=== PATIENT | male | born 1965 | race Caucasian/White ===

== ENCOUNTER 2017-07-29 10:23 | Emergency (ER) | payer BC, OTHER ==
[~2017-07-29] VITALS: Ht 172.7 cm; Wt 89.6 kg
[~2017-07-29 10:23] MED LIST: CLON0.5T3 PO; GLUCTAB7 PO; KRIL1CAP7 PO; MULTTAB58 PO
[2017-07-29 10:37] VITALS: TEMP 36.7; Ht 172.7 cm; Wt 89.6 kg
[2017-07-29 10:54] VITALS: O2SAT 97
[2017-07-29] MEDS ORDERED: MECLIZINE HCL 12.5 MG TAB PO STA (10:58)
[2017-07-29] MEDS ORDERED: ASPIRIN 81 MG CHEW PO STA (10:58)
--- NOTE | 2017-07-29 10:58 | EMERGENCY ROOM VISIT NOTE ---
History Report prepared by Jl: Gunjan Salmeron Under the Supervision of: Dr. Juan Lockwood M.D. First contact with patient: 10:46 Chief Complaint: HYPERTENSION Stated Complaint: BP HIGH & DIZZY GNAWING PAIN LEFT SIDE UNDER ARM History of Present Illness The patient is a 52 year old male who presents to the Emergency Room with complaints of intermittent episodes of high blood pressure followed by dizziness and pain down left chest/side beginning two weeks ago. Presently, the patient denies any chest pain. The patient describes his pain in his side as a "gnawing" pain. The patient denies any cough, hormone replacements, or recent travel. The patient denies any recent falls or trauma. The patient denies any history of hypertension The patient is not a smoker. Source of History: patient Onset: 2 weeks ago Position: other (generalized) Quality: other (dizziness) Timing: intermittent Associated Symptoms: No chest pain Review of Systems See HPI for pertinent positives and negatives. A total of ten systems were reviewed and were otherwise negative. Past Medical & Surgical Medical Problems: (1) No Known Active Medical Problems Family History Diabetes mellitus FH: cancer FH: heart disease Hypertension Social History Smoking Status: Never Smoker Alcohol Use: occasionally Drug Use: none Marital Status: Housing Status: lives with significant other Occupation Status: employed Current/Historical Medications Scheduled Aspirin (Aspirin Ec), 81 MG PO QAM Clonazepam (Klonopin), 0.5 MG PO HS Fish Oil ([place]-3), 2 CAP PO QAM Bzbszckpxnk-Secgudzlqnr-Xci C- (Glucosamine Chondroitin), 2 TABS PO DAILY Magnesium Oxide (Mag-Ox), 400 MG PO QAM Misc Natural Products (Turmeric Curcumin), 1 CAP PO QAM Multiple Vitamin (Multivitamin), 1 TAB PO DAILY Scheduled PRN Ibuprofen (Advil), 200-600 MG PO Q4H PRN for Pain Allergies Coded Allergies: No Known Allergies (Unverified , 07/29/17) Physical Exam Vital Signs Date Time Temp Pulse Resp B/P (MAP) Pulse Ox O2 Delivery O2 Flow Rate FiO2 07/29/17 12:36 84 20 116/84 97 07/29/17 12:18 84 20 116/84 97 Room Air 07/29/17 11:01 80 07/29/17 11:00 84 16 135/89 97 Room Air 07/29/17 10:54 97 Room Air 07/29/17 10:37 36.7 86 18 148/95 97 Room Air Physical Exam Physical Exam GENERAL: He is oriented to person, place, and time. He appears well-developed and well-nourished. He does not appear distressed. ____ HENT: Exam performed. Head: Normocephalic and atraumatic. Right Ear: External ear normal. No mastoid tenderness. Left Ear: External ear normal. No mastoid tenderness. Mouth/Throat: The oropharynx is clear and moist. No trismus in the jaw. No dental abscesses or uvula swelling. No oropharyngeal exudate or tonsillar abscesses. ____ EYES: Conjunctivae and EOM are normal. Pupils are equal, round, and reactive to light. Right eye exhibits no discharge. Left eye exhibits no discharge. No scleral icterus. ____ NECK: Normal range of motion. Neck supple. No JVD present. No spinous process tenderness present. No carotid bruit present. No rigidity. No tracheal deviation and normal range of motion present. No Brudzinski's sign and no Kernig 's sign noted. ____ CV: Normal rate, regular rhythm, normal heart sounds and intact distal pulses. There is no peripheral edema. Palpable radial pulses bue. ____ PULM/CHEST: Effort normal and breath sounds normal. No respiratory distress. No stridor. He has no wheezes. He has no rales. Chest Wall: He exhibits no tenderness. ____ ABD: The abdomen is soft. Bowel sounds are normal. He has no distension. No mass is present. There is no tenderness. There is no rebound, no guarding, no Cesar's sign and no tenderness at McBurney's point. Rovsig negative MUSC/SKEL: Normal range of motion. There is no peripheral edema, tenderness or deformity. LYMPH: No cervical adenopathy. ____ NEURO: He is alert and oriented to person, place, and time. He has normal strength. No cranial nerve deficit or sensory deficit. Coordination and gait normal. GCS eye subscore is 4. GCS verbal subscore is 5. GCS motor subscore is 6. Cerebellar tests wnl. ____ SKIN: Skin is warm and dry. He is not diaphoretic. ____ PSYCH: He has a normal mood and affect. His behavior is normal. Judgment and thought content normal. ____ Medical Decision & Procedures Laboratory Results 07/29/17 11:00 Red Blood Count 4.72, Mean Corpuscular Volume 83.9, Mean Corpuscular Hemoglobin 30.1, Mean Corpuscular Hemoglobin Concent 35.9, Mean Platelet Volume 10.4, Neutrophils (%) (Auto) 64.0, Lymphocytes (%) (Auto) 23.7, Monocytes (%) (Auto) 7.9, Eosinophils (%) (Auto) 3.8, Basophils (%) (Auto) 0.2, Neutrophils # (Auto) 5.32, Lymphocytes # (Auto) 1.97, Monocytes # (Auto) 0.66, Eosinophils # (Auto) 0.32, Basophils # (Auto) 0.02 07/29/17 11:00 Test 07/29/17 11:00 White Blood Count 8.32 K/uL (4.8-10.8) Red Blood Count 4.72 M/uL (4.7-6.1) Hemoglobin 14.2 g/dL (14.0-18.0) Hematocrit 39.6 % (42-52) Mean Corpuscular Volume 83.9 fL (80-100) Mean Corpuscular Hemoglobin 30.1 pg (25-34) Mean Corpuscular Hemoglobin Concent 35.9 g/dl (32-36) Platelet Count 188 K/uL (130-400) Mean Platelet Volume 10.4 fL (7.4-10.4) Neutrophils (%) (Auto) 64.0 % Lymphocytes (%) (Auto) 23.7 % Monocytes (%) (Auto) 7.9 % Eosinophils (%) (Auto) 3.8 % Basophils (%) (Auto) 0.2 % Neutrophils # (Auto) 5.32 K/uL (1.4-6.5) Lymphocytes # (Auto) 1.97 K/uL (1.2-3.4) Monocytes # (Auto) 0.66 K/uL (0.11-0.59) Eosinophils # (Auto) 0.32 K/uL (0-0.5) Basophils # (Auto) 0.02 K/uL (0-0.2) RDW Standard Deviation 38.8 fL (36.4-46.3) RDW Coefficient of Variation 12.7 % (11.5-14.5) Immature Granulocyte % (Auto) 0.4 % Immature Granulocyte # (Auto) 0.03 K/uL (0.00-0.02) Anion Gap 5.0 mmol/L (3-11) Est Creatinine Clear Calc Drug Dose 95.0 ml/min Estimated GFR () 100.6 Estimated GFR (Non- 86.8 BUN/Creatinine Ratio 10.1 (10-20) Calcium Level 8.7 mg/dl (8.5-10.1) Troponin I < 0.015 ng/ml (0-0.045) Laboratory results reviewed by me Medications Administered Medications (Trade) Dose Ordered Sig/Gerardo Route Start Time Stop Time Status Last Admin Dose Admin Aspirin (Aspirin Chew) 324 mg NOW STAT PO 07/29/17 10:58 07/29/17 11:01 DC 07/29/17 11:26 324 MG Meclizine HCl (Antivert Tab) 12.5 mg NOW STAT PO 07/29/17 10:58 07/29/17 11:01 DC 07/29/17 11:26 12.5 MG ECG Per My Interpretation Indication: chest pain Rate (beats per minute): 82 Rhythm: sinus rhythm Findings: other ([place],QRS, QTC within normal limits, no ST elevation or ST depression) ED Course 1053: The patient was evaluated in room B8. A complete history and physical exam was performed. 1058: Ordered Antivert Tab 12.5 mg PO, Aspirin 324 mg PO. 1230: Vitals stable, blood pressure, EKG, and labs within normal limits. The patient's dizziness resolved. Long conversation with the patient and his family at bedside about hypertension and lifestyle modifications including low salt diet and exercise. He agreed to engage in these and will follow up with his PCP. DISCHARGE - Plan of care discussed with family and questions answered. The family was given both verbal and printed discharge instructions. The family verbalized understanding and ability to comply. The family is to seek outpatient follow up as noted in the discharge instructions. The family verbalized understanding and ability to comply. The family is discharged in stable condition. The family was instructed to return for worsening symptoms. Medical Decision Vitals stable, blood pressure, EKG, and labs within normal limits. The patient' s dizziness resolved. Long conversation with the patient and his family at bedside about hypertension and lifestyle modifications including low salt diet and exercise. He agreed to engage in these and will follow up with his PCP. DISCHARGE - Plan of care discussed with family and questions answered. The family was given both verbal and printed discharge instructions. The family verbalized understanding and ability to comply. The family is to seek outpatient follow up as noted in the discharge instructions. The family verbalized understanding and ability to comply. The family is discharged in stable condition. The family was instructed to return for worsening symptoms. Medication Reconcilliation Current Medication List: was personally reviewed by me Blood Pressure Screening Patient's blood pressure: Elevated blood pressure Blood pressure disposition: Referred to PCP Impression Primary Impression: Hypertension Scribe Attestation The scribe's documentation has been prepared under my direction and personally reviewed by me in its entirety. I confirm that the note above accurately reflects all work, treatment, procedures, and medical decision making performed by me. The chart was completed utilizing [employer] Speech voice recognition software. Grammatical errors, random word insertions, pronoun errors, and incomplete sentences are an occasional consequence of this system due to software limitations, ambient noise, and hardware issues. Any formal questions or concerns about the content, text, or information contained within the body of this dictation should be directly addressed to the physician for clarification. Departure Information Dispostion Home / Self-Care Referrals Ann Almanzar M.D. (MEDICAL) (PCP) Forms HOME CARE DOCUMENTATION FORM, IMPORTANT VISIT INFORMATION, WORK / SCHOOL INSTRUCTIONS Patient Instructions Hypertension Control, My [facility] Problem Qualifiers Primary Impression: Hypertension Hypertension type: unspecified Qualified Codes: I10 - Essential (primary) hypertension
[2017-07-29 11:17] LABS: BASO % 0.2 %; BASO ABS # 0.02 K/uL (0-0.2); EOS % 3.8 %; EOS ABS # 0.32 K/uL (0-0.5); HEMATOCRIT 39.6 % (42-52); HEMOGLOBIN 14.2 g/dL (14.0-18.0); IG# 0.03 K/uL (0.00-0.02); LYMPH % 23.7 %; LYMPH ABS # 1.97 K/uL (1.2-3.4); MEAN CELL VOLUME 83.9 fL (80-100); MEAN CORPUSCULAR HEMOGLOBIN 30.1 pg (25-34); MEAN CORPUSCULAR HGB CONC 35.9 g/dl (32-36); MEAN PLATELET VOLUME 10.4 fL (7.4-10.4); MONO % 7.9 %; MONO ABS # 0.66 K/uL (0.11-0.59); NEUT ABS # 5.32 K/uL (1.4-6.5); PLATELET COUNT 188 K/uL (130-400); RED CELL DISTRIBUTION WIDTH CV 12.7 % (11.5-14.5); RED CELL DISTRIBUTION WIDTH SD 38.8 fL (36.4-46.3); WHITE BLOOD COUNT 8.32 K/uL (4.8-10.8)
[2017-07-29] MEDS ORDERED: MAGN400T6 PO (11:23)
[2017-07-29] MEDS ORDERED: ASPI81TA28 PO (11:23)
[2017-07-29] MEDS ORDERED: IBUP-1050 PO (11:23)
[2017-07-29] MEDS ORDERED: MISCCAP52 PO (11:23)
[2017-07-29] MEDS ORDERED: OMEG10007 PO (11:23)
[2017-07-29 11:33] LABS: BLOOD UREA NITROGEN 10 mg/dl (7-18); CALCIUM 8.7 mg/dl (8.5-10.1); CARBON DIOXIDE 30 mmol/L (21-32); GLUCOSE 104 mg/dl (70-99); POTASSIUM 3.6 mmol/L (3.5-5.1); SODIUM 132 mmol/L (136-145)
[2017-07-29 12:36] VITALS: BP 116/84; PULSE 84; O2SAT 97
== END 2017-07-29 12:36 | disposition home or self-care (01) ==
LOC: C.EDB 10:25
DX: I10 Essential (primary) hypertension (principal); R42 Dizziness and giddiness; R07.89 Other chest pain; Z79.82 Long term (current) use of aspirin; Z83.3 Family history of diabetes mellitus; Z82.49 Family history of ischemic heart disease and other diseases of the circulatory system

== ENCOUNTER 2019-05-17 10:25 | Observation (INO) ==
[2019-05-17 11:12] LABS: Basophils # (auto) 0.03 K/uL (0-0.2); Basophils % (auto) 0.2 %; Eosinophils # (auto) 0.05 K/uL (0-0.5); Eosinophils % (auto) 0.3 %; Hematocrit (blood only) 41.6 % (42-52); Hemoglobin 14.5 g/dL (14.0-18.0); Immature Granulocytes # (auto) 0.07 K/uL (0.00-0.02); Immature Granulocytes % (auto) 0.4 %; Lymphocytes # (auto) 1.58 K/uL (1.2-3.4); Lymphocytes % (auto) 8.4 %; Mean Corpuscular Hemoglobin 30.4 pg (25-34); Mean Corpuscular Hgb Conc 34.9 g/dL (32-36); Mean Corpuscular Volume 87.2 fL (80-100); Mean Platelet Volume 10.5 fL (7.4-10.4); Monocytes # (auto) 1.28 K/uL (0.11-0.59); Monocytes % (auto) 6.8 %; Neutrophils # (auto) 15.71 K/uL (1.4-6.5); Neutrophils % (auto) 83.9 %; Platelet Count 185 K/uL (130-400); RDW Standard Deviation 41.7 fL (36.4-46.3); Red Blood Count 4.77 M/uL (4.7-6.1); White Blood Count 18.72 K/uL (4.8-10.8)
[2019-05-17 11:13] LABS: Appearance Urine Clear (Clear); Bilirubin Urine Negative (Negative); Blood Urine Negative (Negative); Color Urine Yellow; Glucose Urine UA Negative (Negative); Ketones Urine Trace (Negative); Leukocyte Esterase Urine Negative (Negative); Nitrite Urine Negative (Negative); Protein Urine Negative (Negative); Specific Gravity Urine 1.018 (1.000-1.030); Urobilinogen Urine Negative (Negative); pH Urine 6.5 (4.5-7.5)
[2019-05-17] MEDS: SODIUM CHLORIDE 0.9% 1000ML 1,000 ML IV SCH ×2 (11:23→12:32)
[2019-05-17 11:55] LABS: Albumin Globulin Ratio 1.1 (0.9-2); Bilirubin,Total 0.9 mg/dl (0.2-1); Est GFR (African American) 83.5; Globulin 3.6 gm/dl (2.5-4.0); Total Protein 7.6 gm/dl (6.4-8.2)
[2019-05-17 12:00] LABS: Potassium 3.4 mmol/L (3.5-5.1)
[2019-05-17] MEDS ORDERED: IOVERSOL 100ml IV PRN (12:46)
--- NOTE | 2019-05-17 13:19 | CT Scan Report ---
CT OF THE ABDOMEN AND PELVIS WITH CONTRAST CLINICAL HISTORY: Right lower quadrant abdominal pain. COMPARISON STUDY: None. TECHNIQUE: Following IV administration of 94 mL of Optiray-320, axial images of the abdomen and pelvi s were obtained from the lung bases to the proximal femurs. Images were reviewed in the axial, sagitt al, and coronal planes. IV contrast was administered without complication. Automated exposure contro l was utilized for the study. A dose lowering technique was utilized adhering to the principles of A CHILO. CT DOSE: 565.42 mGy.cm FINDINGS: Incidental note is made of a 4.8 x 1.6 cm pericardial cyst at the right cardiophrenic angle . There are several hepatic cysts. The spleen, adrenal glands, left kidney and pancreas are normal. N ote is made of a 6.3 cm water attenuation right renal lesion consistent with a cyst. There is no evid ence for a bowel obstruct. The appendix is mildly dilated and fluid-filled, measuring 8 mm in caliber . There is moderate periappendiceal infiltration. The appendix is retrocecal in location and located within immediately inferior to the right hepatic lobe. No free air or abscess. Bladder is moderately distended. No suspicious osseous lesions are noted. There is no lymphadenopathy. IMPRESSION: Acute appendicitis. Retrocecal appendix located immediately inferior to the right hepati c lobe. Mildly dilated appendix with moderate periappendiceal infiltration. No free air or abscess. ACT 112: Negative or not required by law. Electronically signed by: Terry Negron M.D. 05/17/2019 1:18 PM
[2019-05-17] MEDS ORDERED: cefOXitin 2,000 MG/60 ML BAG IV STA ×2 (13:25→14:10)
--- NOTE | 2019-05-17 14:22 | History & Physical Report ---
Date of Service May 17, 2019 Assessment & Plan (1) Acute appendicitis: Plan for laparoscopic appendectomy. Mefoxin was given in the ED at 1335. History of Present Illness Primary Care Provider: Sheng Espino MD 53 y/o male with abdominal pain, N/V that began yesterday. Pain has continued, has not had anything like this before. Recently ran out of medicine for BP, needs to see PCP to have refill. Allergies Allergy/AdvReac Type Severity Reaction Status Date / Time No Known Allergies Allergy Unverified 05/17/19 11:14 Home Medications Home Medications Medication Instructions Recorded Confirmed Type clonazepam [Klonopin] 0.5 mg PO HS PRN #0 tab 05/09/12 05/17/19 History multivitamin 1 tab PO DAILY #0 tab 05/09/12 05/17/19 History jirowjmmonq-vcqbcjrtz-kaw C-Mn 2 cap PO DAILY #0 02/27/16 05/17/19 History aspirin [Aspirin Low Dose] 81 mg PO DAILY #0 07/29/17 05/17/19 History ibuprofen [Advil] 200 - 600 mg PO Q4H PRN #0 07/29/17 05/17/19 History magnesium oxide 400 mg PO DAILY #0 07/29/17 05/17/19 History omega 4-reh-jet-fish oil [[place]-3] 2 cap PO DAILY #0 07/29/17 05/17/19 History Past Med/Surg History Medical History No significant past medical history Social History Preferred Language: Estonian Feels Safe at Home: Yes Smoking Status: Never smoker Review of Systems Constitutional: no fever and no chills Gastrointestinal: + abdominal pain, + nausea and + vomiting Physical Exam Constitutional: WD/WN, vitals as above Respiratory: normal respiratory effort, lungs clear to auscultation Cardiovascular: RRR, no murmur, no edema Gastrointestinal (Abdomen): Percussion/Palpation: + abdomen tender (RLQ) and abdomen soft Results & Data Vital Signs (Past 12 Hours) Vital Signs Temp Pulse Pulse Resp BP BP Pulse Ox 05/17/19 14:00 103 H 97 H 25 H 168/99 H 97 05/17/19 13:45 100 H 18 96 05/17/19 13:30 97 H 97 H 16 168/99 H 168/99 H 96 05/17/19 13:16 98 H 12 95 05/17/19 13:15 95 H 96 H 19 179/106 H 176/109 H 96 05/17/19 13:14 95 05/17/19 13:00 92 H 18 144/91 H 96 05/17/19 12:31 100 H 17 96 05/17/19 12:30 97 H 97 H 20 148/94 H 148/94 H 96 05/17/19 12:15 90 16 95 05/17/19 12:01 102 H 20 95 05/17/19 12:00 92 H 92 H 18 144/91 H 144/91 H 93 05/17/19 11:45 89 18 94 05/17/19 11:37 92 H 13 94 05/17/19 11:30 93 H 93 H 18 148/89 H 148/89 H 94 05/17/19 11:24 86 86 18 149/90 H 95 05/17/19 10:34 36.7 C 109 H 18 165/97 H 98 PG Care Time/CCT Total # of Minutes Spent Total Time Spent with Patient: Total time spent is greater than 50% in coordination of care (as documented) at patient's floor/unit and/or counseling patient: (1) Acute appendicitis Acute appendicitis type: unspecified acute appendicitis type Qualified Code(s): K35.80 - Unspecified acute appendicitis
--- NOTE | 2019-05-17 14:36 | Emergency Department Note ---
Entered by Sandy Quintero acting as a scribe for Ángel Hair DO History of Present Illness General Chief complaint: Flank Pain Stated complaint: PAIN IN RIGHT SIDE,NAUSEA Source: patient History of Present Illness Onset (ago): day(s) 1 Location: abdomen (lower) Radiation: abdomen (right lower) Pain Consistency: + constant Maximum Pain Intensity: 3 Current Pain Intensity: 3 Associated symptoms: + other (positive intermittent smaller bowel movements; negative urinary symptoms; negative blood in urine; negative runny nose); no cough The patient is a 53 year old male who presents to the Emergency Room with complaints of constant lower abdominal pain that began yesterday afternoon. The patient states that his pain began in his left lower abdomen and began radiating to the right side of his abdomen. The patient rates his pain at a 3/10. The patient reports smaller bowel movements intermittently over the past several weeks. The patient denies urinary symptoms, blood in his urine, cough, and runny nose. The patient denies any previous abdominal surgeries. Home Medications Home Medications Medication Instructions Recorded Confirmed Type clonazepam [Klonopin] 0.5 mg PO HS PRN #0 tab 05/09/12 05/17/19 History multivitamin 1 tab PO DAILY #0 tab 05/09/12 05/17/19 History suqllrlzlnx-pqvzzilye-hjb C-Mn 2 cap PO DAILY #0 02/27/16 05/17/19 History aspirin [Aspirin Low Dose] 81 mg PO DAILY #0 07/29/17 05/17/19 History ibuprofen [Advil] 200 - 600 mg PO Q4H PRN #0 07/29/17 05/17/19 History magnesium oxide 400 mg PO DAILY #0 07/29/17 05/17/19 History omega 1-daw-qmw-fish oil [[place]-3] 2 cap PO DAILY #0 07/29/17 05/17/19 History Allergies Allergy/AdvReac Type Severity Reaction Status Date / Time No Known Allergies Allergy Unverified 05/17/19 11:14 Past Med/Surg History Medical History No significant past medical history Social History Preferred Language: Nepalese Feels Safe at Home: Yes Smoking Status: Never smoker Review of Systems See HPI for pertinent positives & negatives. Physical Exam Vital Signs Vital Signs - 24 hr 05/17/19 10:34 05/17/19 11:24 05/17/19 11:30 Temperature 36.7 C Temperature Source Oral Pulse Rate 109 H 86 93 H Pulse Rate [Apical] 86 93 H Pulse Rate from SpO2 Sensor 92 H Pulse Rhythm Regular Pulse Rhythm [Apical] Regular Regular Pulse Strength [Apical] Normal Normal Respiratory Rate 18 18 18 Respiratory Effort / Characteristics Non-Labored Spontaneous Non-Labored Spontaneous Non-Labored Spontaneous Respiratory Depth Normal Normal Normal Respiratory Pattern Regular Regular Regular Blood Pressure 165/97 H 148/89 H Blood Pressure [Right Arm] 149/90 H 148/89 H Blood Pressure Mean 119 101 Blood Pressure Mean [Right Arm] 109 108 Blood Pressure Position Sitting Blood Pressure Position [Right Arm] Lying Lying Pulse Oximetry 98 95 94 Oxygen Delivery Method Room Air Room Air Room Air Sepsis Recent Fever Within 48 Hours No Sepsis New/Unexplained Change in Mental Status No Sepsis Action Taken by Nursing No Action Required 05/17/19 11:37 05/17/19 11:45 05/17/19 12:00 Temperature Temperature Source Pulse Rate 92 H 89 92 H Pulse Rate [Apical] 92 H Pulse Rate from SpO2 Sensor 94 H 89 92 H Pulse Rhythm Pulse Rhythm [Apical] Regular Pulse Strength [Apical] Normal Respiratory Rate 13 18 18 Respiratory Effort / Characteristics Non-Labored Spontaneous Respiratory Depth Normal Respiratory Pattern Regular Blood Pressure 144/91 H Blood Pressure [Right Arm] 144/91 H Blood Pressure Mean 100 Blood Pressure Mean [Right Arm] 108 Blood Pressure Position Blood Pressure Position [Right Arm] Lying Pulse Oximetry 94 94 93 Oxygen Delivery Method Room Air Sepsis Recent Fever Within 48 Hours Sepsis New/Unexplained Change in Mental Status Sepsis Action Taken by Nursing 05/17/19 12:01 05/17/19 12:15 05/17/19 12:30 Temperature Temperature Source Pulse Rate 102 H 90 97 H Pulse Rate [Apical] 97 H Pulse Rate from SpO2 Sensor 101 H 91 H 96 H Pulse Rhythm Regular Pulse Rhythm [Apical] Regular Pulse Strength [Apical] Normal Respiratory Rate 20 16 20 Respiratory Effort / Characteristics Non-Labored Spontaneous Respiratory Depth Normal Respiratory Pattern Regular Blood Pressure 148/94 H Blood Pressure [Right Arm] 148/94 H Blood Pressure Mean 109 Blood Pressure Mean [Right Arm] 112 Blood Pressure Position Blood Pressure Position [Right Arm] Lying Pulse Oximetry 95 95 96 Oxygen Delivery Method Room Air Sepsis Recent Fever Within 48 Hours Sepsis New/Unexplained Change in Mental Status Sepsis Action Taken by Nursing 05/17/19 12:31 05/17/19 13:00 05/17/19 13:14 Temperature Temperature Source Pulse Rate 100 H Pulse Rate [Apical] 92 H Pulse Rate from SpO2 Sensor 100 H 98 H Pulse Rhythm Pulse Rhythm [Apical] Regular Pulse Strength [Apical] Normal Respiratory Rate 17 18 Respiratory Effort / Characteristics Non-Labored Spontaneous Respiratory Depth Normal Respiratory Pattern Regular Blood Pressure Blood Pressure [Right Arm] 144/91 H Blood Pressure Mean Blood Pressure Mean [Right Arm] 108 Blood Pressure Position Blood Pressure Position [Right Arm] Lying Pulse Oximetry 96 96 95 Oxygen Delivery Method Room Air Sepsis Recent Fever Within 48 Hours Sepsis New/Unexplained Change in Mental Status Sepsis Action Taken by Nursing 05/17/19 13:15 05/17/19 13:16 05/17/19 13:30 Temperature Temperature Source Pulse Rate 95 H 98 H 97 H Pulse Rate [Apical] 96 H 97 H Pulse Rate from SpO2 Sensor 96 H 98 H 98 H Pulse Rhythm Pulse Rhythm [Apical] Pulse Strength [Apical] Respiratory Rate 19 12 16 Respiratory Effort / Characteristics Non-Labored Spontaneous Respiratory Depth Normal Respiratory Pattern Regular Blood Pressure 179/106 H 168/99 H Blood Pressure [Right Arm] 176/109 H 168/99 H Blood Pressure Mean 119 122 Blood Pressure Mean [Right Arm] 131 122 Blood Pressure Position Blood Pressure Position [Right Arm] Pulse Oximetry 96 95 96 Oxygen Delivery Method Room Air Room Air Sepsis Recent Fever Within 48 Hours Sepsis New/Unexplained Change in Mental Status Sepsis Action Taken by Nursing 05/17/19 13:45 05/17/19 14:00 05/17/19 14:15 Temperature Temperature Source Pulse Rate 100 H 103 H 102 H Pulse Rate [Apical] 97 H Pulse Rate from SpO2 Sensor 101 H 103 H 103 H Pulse Rhythm Pulse Rhythm [Apical] Pulse Strength [Apical] Respiratory Rate 18 25 H 15 Respiratory Effort / Characteristics Non-Labored Spontaneous Respiratory Depth Normal Respiratory Pattern Regular Blood Pressure Blood Pressure [Right Arm] 168/99 H Blood Pressure Mean Blood Pressure Mean [Right Arm] 122 Blood Pressure Position Blood Pressure Position [Right Arm] Pulse Oximetry 96 97 96 Oxygen Delivery Method Room Air Sepsis Recent Fever Within 48 Hours Sepsis New/Unexplained Change in Mental Status Sepsis Action Taken by Nursing 05/17/19 14:19 05/17/19 14:20 Temperature Temperature Source Pulse Rate 104 H Pulse Rate [Apical] 102 H Pulse Rate from SpO2 Sensor 104 H Pulse Rhythm Pulse Rhythm [Apical] Pulse Strength [Apical] Respiratory Rate 19 12 Respiratory Effort / Characteristics Non-Labored Spontaneous Respiratory Depth Normal Respiratory Pattern Regular Blood Pressure 150/99 H Blood Pressure [Right Arm] 150/99 H Blood Pressure Mean 116 Blood Pressure Mean [Right Arm] 116 Blood Pressure Position Blood Pressure Position [Right Arm] Pulse Oximetry 97 96 Oxygen Delivery Method Room Air Sepsis Recent Fever Within 48 Hours Sepsis New/Unexplained Change in Mental Status Sepsis Action Taken by Nursing GENERAL: Laying in bed, wearing hospital gown, no acute distress, non-toxic, holding right lower quadrant. EYE EXAM: normal conjunctiva OROPHARYNX: no exudate, no erythema, lips, buccal mucosa, and tongue normal and mucous membranes are moist NECK: supple, no nuchal rigidity, no adenopathy, non-tender LUNGS: Clear to auscultation. Normal chest wall mechanics HEART: no murmurs, S1 normal and S2 normal ABDOMEN: tenderness in the right lower quadrant, abdomen soft, normo-active brittany wel sounds, no masses, no rebound or guarding. BACK: Back is symmetrical on inspection and there is no deformity, no midline tenderness, no CVA tenderness. SKIN: no rashes and no bruising UPPER EXTREMITIES: upper extremities are grossly normal. LOWER EXTREMITIES: No pitting edema. NEURO EXAM: Normal sensorium, cranial nerves II-XII grossly intact, normal speech, no gross weakness of arms, no gross weakness of legs. Course Course ED COURSE: Vital signs were reviewed and showed hypertension. The patients medical record was reviewed The above diagnostic studies were performed and reviewed. ED treatments and interventions as stated above. 1041: The patient was evaluated in room C2B. A complete history and physical examination was performed. 1323: I discussed the case with Kodak Lester-General Surgery TANIA who accepts the patient for further evaluation under Dr. Redding-General Surgery 1327: Upon reevaluation, the patient is resting comfortably. I discussed my findings with the patient and he understands and agrees with the treatment plan. Based on the patients age, coexisting illnesses, exam and lab findings the decision to treat as an inpatient was made. The patient remained stable while under my care. The patient will be evaluated for further management. Administered Medications Ioversol (Optiray 320 100ml) 94 ml IV ONCE PRN PRN Reason: Interaction Checking Stop: 05/21/19 12:45 Last Admin: 05/17/19 12:47 Dose: 94 ml Documented by: [id number] Discontinued Medications Sodium Chloride (Nss 1000ml) 1,000 mls @ 999 mls/hr IV .Q1H1M JESSIE Stop: 05/17/19 12:45 Last Infusion: 05/17/19 13:33 Dose: 0 mls/hr Documented by: [id number] Admin: 05/17/19 12:32 Dose: 999 mls/hr Documented by: [id number] Infusion: 05/17/19 12:24 Dose: 999 mls/hr Documented by: [id number] Admin: 05/17/19 11:23 Dose: 999 mls/hr Documented by: [id number] Cefoxitin Sodium (Mefoxin) 2,000 mg in 60 mls @ 100 mls/hr IV NOW STA Stop: 05/17/19 14:00 Last Infusion: 05/17/19 14:11 Dose: 0 mls/hr Documented by: [id number] Admin: 05/17/19 13:35 Dose: 100 mls/hr Documented by: [id number] Cefoxitin Sodium (Mefoxin) 2,000 mg in 60 mls @ 100 mls/hr IV NOW STA Stop: 05/17/19 14:45 Last Admin: 05/17/19 14:14 Dose: Not Given Documented by: [id number] Medical Decision Making Differential Diagnosis Differential diagnoses includes but is not limited to gastritis, peptic ulcer disease, GERD, gallbladder disease, pancreatitis, small bowel obstruction, acute coronary syndrome, pericarditis, ischemic bowel, irritable bowel disease, irritable bowel syndrome, appendicitis, diverticulitis, malignancy, hernia, urinary tract infection, torsion, perforation, trauma, infectious. Medical Records Attestation: I reviewed the patient's medical records. Home Medications Current Medication List: was personally reviewed by me Laboratory Data Attestation: I reviewed the patient's lab results. Result diagrams: 05/17/19 11:01 05/17/19 11:01 Lab Results 05/17/19 05/17/19 05/17/19 Range/Units 11:01 11:01 11:01 WBC 18.72 H (4.8-10.8) K/uL RBC 4.77 (4.7-6.1) M/uL Hgb 14.5 (14.0-18.0) g/dL Hct 41.6 L (42-52) % MCV 87.2 (80-100) fL MCH 30.4 (25-34) pg MCHC 34.9 (32-36) g/dL RDW Std Deviation 41.7 (36.4-46.3) fL RDW Coeff of Jabier 13.0 (11.5-14.5) % Plt Count 185 (130-400) K/uL MPV 10.5 H (7.4-10.4) fL Immature Gran % (Auto) 0.4 % Neut % (Auto) 83.9 % Lymph % (Auto) 8.4 % [place] % (Auto) 6.8 % Eos % (Auto) 0.3 % Baso % (Auto) 0.2 % Immature Gran # (Auto) 0.07 H (0.00-0.02) K/uL Neut # (Auto) 15.71 H (1.4-6.5) K/uL Lymph # (Auto) 1.58 (1.2-3.4) K/uL [place] # (Auto) 1.28 H (0.11-0.59) K/uL Eos # (Auto) 0.05 (0-0.5) K/uL Baso # (Auto) 0.03 (0-0.2) K/uL Sodium 137 (136-145) mmol/L Potassium 3.4 L (3.5-5.1) mmol/L Chloride 103 (98-107) mmol/L Carbon Dioxide 27 (21-32) mmol/L Anion Gap 7.0 (3-11) BUN 13 (7-18) mg/dl Creatinine 1.16 (0.6-1.4) mg/dl Est Cr Clr Drug Dosing 82.0 ml/min Est GFR ( Amer) 83.5 Est GFR (Non-Af Amer) 72.0 BUN/Creatinine Ratio 11.0 (10-20) Glucose 111 H (70-99) mg/dl Calcium 9.0 (8.5-10.1) mg/dl Total Bilirubin 0.9 (0.2-1) mg/dl AST 16 (15-37) U/L ALT 36 (12-78) U/L Alkaline Phosphatase 73 (45-117) U/L Total Protein 7.6 (6.4-8.2) gm/dl Albumin 4.0 (3.4-5.0) gm/dl Globulin 3.6 (2.5-4.0) gm/dl Albumin/Globulin Ratio 1.1 (0.9-2) Lipase 77 (73-393) U/L Urine Color Yellow Urine Appearance Clear (Clear) Urine pH 6.5 (4.5-7.5) Ur Specific [place] 1.018 (1.000-1.030) Urine Protein Negative (Negative) Urine Glucose (UA) Negative (Negative) Urine Ketones Trace H (Negative) Urine Blood Negative (Negative) Urine Nitrite Negative (Negative) Urine Bilirubin Negative (Negative) Urine Urobilinogen Negative (Negative) Ur Leukocyte Esterase Negative (Negative) Imaging Data Radiologist's Impression: Radiology results as stated below per my review and the radiologist's interpretation: CT OF THE ABDOMEN AND PELVIS WITH CONTRAST CLINICAL HISTORY: Right lower quadrant abdominal pain. COMPARISON STUDY: None. TECHNIQUE: Following IV administration of 94 mL of Optiray-320, axial images of the abdomen and pelvis were obtained from the lung bases to the proximal femurs. Images were reviewed in the axial, sagittal, and coronal planes. IV contrast was administered without complication. Automated exposure control was utilized for the study. A dose lowering technique was utilized adhering to the principles of ALARA. CT DOSE: 565.42 mGy.cm FINDINGS: Incidental note is made of a 4.8 x 1.6 cm pericardial cyst at the right cardiophrenic angle. There are several hepatic cysts. The spleen, adrenal glands, left kidney and pancreas are normal. Note is made of a 6.3 cm water attenuation right renal lesion consistent with a cyst. There is no evidence for a bowel obstruct. The appendix is mildly dilated and fluid-filled, measuring 8 mm in caliber. There is moderate periappendiceal infiltration. The appendix is retrocecal in location and located within immediately inferior to the right hepatic lobe. No free air or abscess. Bladder is moderately distended. No suspicious osseous lesions are noted. There is no lymphadenopathy. IMPRESSION: Acute appendicitis. Retrocecal appendix located immediately inferior to the right hepatic lobe. Mildly dilated appendix with moderate periappendiceal infiltration. No free air or abscess. ACT 112: Negative or not required by law. Electronically signed by: Terry Negron M.D. 05/17/2019 1:18 PM Blood Pressure Blood Pressure Findings: Elevated blood pressure Blood Pressure Disposition: further management by hospitalist HUMBERTO Narrative Patient is a 53-year-old male who presents the ER for initially left lower quadrant pain which started yesterday and is now located in the right lower quadrant. IV was established blood work was obtained. Labs show a leukocytosis of 18,000. No significant anemia. BMP with a mild hypokalemia. LFTs bilirubin and lipase was unremarkable. UA was negative. CT shows acute appendicitis. Patient was given IV fluids. He declined pain medications. He was given 2 g cefoxitin. Discussed with general surgery. Family updated bedside. Patient was admitted and will go to the OR secondary to acute appendicitis. Impression & Plan Acute appendicitis, Abdominal pain, Leukocytosis Discharge Plan Visit Data Chief Complaint: Flank Pain Stated Complaint: PAIN IN RIGHT SIDE,NAUSEA ED Provider: Ángel Hair Discharge Problem: Acute appendicitis, Abdominal pain, Leukocytosis Patient Disposition: Being Evaluated by Surgeon Forms Stand Alone Forms: [facility] Prescriptions Prescriptions: No Action multivitamin Tablet 1 tab PO DAILY Qty: 0 RF: 0 clonazepam [Klonopin] 0.5 mg Tablet 0.5 mg PO HS PRN (Reason: Insomnia) Qty: 0 RF: 0 gohlehmdinj-mojjdbulc-vrt C-Mn Capsule 2 cap PO DAILY Qty: 0 RF: 0 aspirin [Aspirin Low Dose] 81 mg Tablet,Delayed Release (Dr/Ec) 81 mg PO DAILY Qty: 0 RF: 0 ibuprofen [Advil] 200 mg Tablet 200 - 600 mg PO Q4H PRN (Reason: Pain) Qty: 0 RF: 0 [place]-3 350 mg-235 mg- 90 mg-597 mg Capsule,Delayed Release(Dr/Ec) 2 cap PO DAILY Qty: 0 RF: 0 magnesium oxide 400 mg magnesium Tablet 400 mg PO DAILY Qty: 0 RF: 0 Referrals Referrals: Sheng Espino MD [Primary Care Provider] - Discharge Problem: Acute appendicitis Qualifiers: Acute appendicitis type: unspecified acute appendicitis type Qualified Code(s): K35.80 - Unspecified acute appendicitis Abdominal pain Qualifiers: Abdominal location: lower abdomen, unspecified Qualified Code(s): R10.30 - Lower abdominal pain, unspecified Leukocytosis Qualifiers: Leukocytosis type: unspecified Qualified Code(s): D72.829 - Elevated white blood cell count, unspecified The scribe's documentation has been prepared under my direction and personally reviewed by me in its entirety. I confirm that the note above accurately reflects all work, treatment, procedures, and medical decision making performed by me.
[2019-05-17] MEDS ORDERED: PROPOFOL IV EMULSION 10 MG/ML 20 ML VIAL IV ONE ×2 (14:45→16:00)
[2019-05-17] MEDS ORDERED: LIDOCAINE HCL 2% 2 ML VIAL/AMP(20MG/ML) INFIL ONE (14:45)
[2019-05-17] MEDS ORDERED: SUCCINYLCHOLINE CHLORIDE 20 MG/ML 10 ML VIAL ONE (14:45)
[2019-05-17] MEDS ORDERED: MIDAZOLAM HCL 1 MG/ML 2ML VIAL ONE (14:45)
[2019-05-17] MEDS ORDERED: ROCURONIUM BROMIDE 10 MG/ML 5 ML VIAL ONE (14:45)
[2019-05-17] MEDS ORDERED: fentaNYL citrate 100 MCG/2 ML VIAL ONE ×2 (14:45→15:35)
[2019-05-17] MEDS ORDERED: LIDOCAINE/EPINEPHRINE 1% 20 ML VIAL ONE (15:03)
--- NOTE | 2019-05-17 15:08 | Anesthesiology Consultation ---
Date of Service May 17, 2019 Assessment & Plan (1) Encounter for pre-operative examination: Chart Review Chart Review: Acceptable Risk for Surgery and Patient NOT seen in Pre Admission Testing Consults Requested none ASA ASA2 Proposed Anesthesia Anesthesia Type: General Risk / Benefits Reviewed With: PT / POA / Parent / Guardian, Accepts Plan and Informed Consent Obtained History Surgery Operation Date: 05/17/19 15:00 Proposed Procedures p Laparoscopic Appendectomy - Jj Redding MD Height/Weight Height: 5 ft 8 in Weight: 91.9 kg Allergies Allergy/AdvReac Type Severity Reaction Status Date / Time No Known Allergies Allergy Unverified 05/17/19 11:14 Medications Home Medications Medication Instructions Recorded Confirmed Last Taken clonazepam [Klonopin] 0.5 mg PO HS PRN #0 tab 05/09/12 05/17/19 05/16/19 multivitamin 1 tab PO DAILY #0 tab 05/09/12 05/17/19 05/16/19 rkuyrhkskoh-imrewodff-ylg C-Mn 2 cap PO DAILY #0 02/27/16 05/17/19 05/16/19 aspirin [Aspirin Low Dose] 81 mg PO DAILY #0 07/29/17 05/17/19 05/16/19 ibuprofen [Advil] 200 - 600 mg PO Q4H PRN #0 07/29/17 05/17/19 05/16/19 magnesium oxide 400 mg PO DAILY #0 07/29/17 05/17/19 05/16/19 omega 3-srz-rgc-fish oil [[place]-3] 2 cap PO DAILY #0 07/29/17 05/17/19 05/16/19 Active Medications Generic Name Dose Route Start Last Admin Trade Name Freq PRN Reason Stop Dose Admin Ioversol 94 ml 05/17/19 12:46 05/17/19 12:47 Optiray 320 100ml IV 05/21/19 12:45 94 ml ONCE PRN Administration Interaction Checking NPO Date Last Intake of Fluids: 05/17/19 Time Last Intake of Fluids: 09:30 Last Intake of Fluids Comment: water Date Last Intake of Solids: 05/16/19 Time Last Intake of Solids: 22:00 Past Medical History Medical History (Updated 05/17/19 @ 15:03 by Candace Baumann MD) Acute appendicitis (Inactive) Hypertension (Inactive) Exercise / Class Metabolic Activity II 4-5 Yardwork/Stairs/Walk up hill Negative for chest pain or shortness of breath. Past Surgical History Surgical History (Updated 05/17/19 @ 15:08 by Candace Baumann MD) History of tonsillectomy [place] teeth extracted Past Anesthesia History No Hx of Anesthesia Complications History of PONV No Hx of PONV Social History Smoking Status: Never smoker Do You Dip or Chew Tobacco: No alcohol intake frequency: a few times a month Hx Substance Use: No Review of Systems abdominal pain Denies N/V Physical Exam Vital Signs Last Vital Signs Temp 36.8 C 05/17/19 14:36 Pulse 98 H 05/17/19 14:36 Resp 23 05/17/19 14:36 BP 161/95 H 05/17/19 14:36 Pulse Ox 97 05/17/19 14:36 Constitutional + obese ENMT Mouth: no TMJ abnormality and oral opening not small Thyromental Distance: < 3.5 Finger Breadths Mallampati Class: III Neck normal visual inspection; neck extension not limited Respiratory normal respiratory effort Auscultation: lungs clear to auscultation bilaterally and + diminished lung sounds Cardiovascular Rate/Rhythm: regular rate and regular rhythm Heart Sounds: no murmur Neurologic moves all extremities Psychiatric Orientation: alert and oriented x 3 Testing Laboratory Results 05/17/19 11:01 05/17/19 11:01 Urine Color Yellow 05/17/19 11:01 Urine Appearance Clear (Clear) 05/17/19 11:01 Urine pH 6.5 (4.5-7.5) 05/17/19 11:01 Ur Specific [place] 1.018 (1.000-1.030) 05/17/19 11:01 Urine Protein Negative (Negative) 05/17/19 11:01 Urine Glucose (UA) Negative (Negative) 05/17/19 11:01 Urine Ketones Trace (Negative) H 05/17/19 11:01 Urine Nitrite Negative (Negative) 05/17/19 11:01 Ur Leukocyte Esterase Negative (Negative) 05/17/19 11:01
[2019-05-17] MEDS ORDERED: ONDANSETRON INJ 2 MG/ML 2 ML VIAL ONE (15:40)
[2019-05-17] MEDS ORDERED: DEXAMETHASONE SOD INJ 4 MG/ML VIAL ONE (15:40)
[2019-05-17] MEDS ORDERED: PHENYLEPHRINE HCL 10 MG/ML VIAL ONE (15:42)
[2019-05-17] MEDS ORDERED: GLYCOPYRROLATE 0.2 MG/ML VIAL ONE (16:06)
[2019-05-17] MEDS ORDERED: NEOSTIGMINE METHYLSULFATE 5 MG/5 ML SYR ONE (16:06)
[2019-05-17] MEDS ORDERED: KETOROLAC 30 MG/ML VIAL ONE (16:08)
--- NOTE | 2019-05-17 16:12 | Post Operative Brief Note ---
PG Immediate Post Op with CF Date of Surgery May 17, 2019 Pre & Post Diagnosis Operation Date: 05/17/19 15:00 Pre-Op Diagnosis: acute appendicitis Post-Op Diagnosis: acute appendicitis I identified the patient and participated in the time-out.: Yes Procedure Operation Date: 05/17/19 15:00 Actual Procedures p Laparoscopic Appendectomy(Not Applicable) - jJ Redding MD Surgeon Jj Redding MD [place] Dried Salt b alpesh cuellar Estimated Blood Loss 10 Findings Consistent with Post-Op Diagnosis Specimens Specimen Description: Permanent: A. Appendix
--- NOTE | 2019-05-17 16:29 | Operative Report ---
PG Post Operative Report Pre & Post Diagnosis Operation Date: 05/17/19 15:00 Pre-Op Diagnosis: acute appendicitis Post-Op Diagnosis: acute appendicitis I identified the patient and participated in the time-out.: Yes Procedure Operation Date: 05/17/19 15:00 Actual Procedures p Laparoscopic Appendectomy(Not Applicable) - Jj Redding MD The patient was brought into the operating theater supine position general endotracheal anesthesia systemic and biotics have been given in the ER the abdomen was prepped Betadine solution properly draped patient was identified a timeout was had small incision was made supraumbilically sufficient to place a Veress needle followed by 5 mm trocar and camera point of entry inspected no injury identified we were able to see that the cecum was elevated up towards the inferior aspect of the liver right lobe therefore I placed a 5 mm epigastric trocar site with preemptive local analgesic 1% Xylocaine and year using a grasper I was able to identify that the appendix was in the gutter the tip was inflamed with some fibrinous exudate but no peritoneal fluid of any consistency was identified elected at this point to convert the 5 mm umbilical port by first enlarging the incision and a using a Martha clamp to expand the 5 mm trocar site that we were able to place 11 mm trocar and direct visualization the 5 mm port was then placed snf between the umbilical area and symphysis pubis under direct visualization with preemptive local analgesic the camera was placed in that site using the epigastric and umbilical trocar sites I freed up some adhesions from the tip of the appendix to its base retroperitoneal these were fine adhesions some of which were clipped once we elevated this has stated the appendix was not ruptured it was inflamed and some fibrous exudate I created a window between the mesoappendix and the base sufficient enough that we were able to place a mix load of the BRYAN the appendix was freed from the cecum staple line was no bleeding the remaining mesoappendix I NADIYA divided using clips 10 mm and no bleeding was appreciated and appeared secure the appendix was then elevated placed in an Endopouch and taken out intact through the umbilical port 11 mm trocar was repositioned and then we suctioned out the subhepatic right gutter area by first placing the patient in reverse Trendelenburg position irrigating the areas copiously irrigating even above the liver that we are sure that there was no active bleeding appreciated this point individual trochars removed under direct visualization unless the umbilical trocar fascial stitch 0 Vicryl suture [id number] x2 was used from the umbilical port to the fascial the other ones 4-0 Monocryl Steri-Strips applied procedure was tolerated well by the patient estimated blood loss 10 cc addendumB Shama cuellar was present throughout the procedure and helped with exposure retraction wound closure and computer data Surgeon Jj Redding MD Under Ground Miner b shama cuellar Estimated Blood Loss 10 Findings Consistent with Post-Op Diagnosis Specimens appendix Description of Procedure merda I attest to the content of the Intraoperative Record and any orders documented therein. Any exceptions are noted below.
[2019-05-17] MEDS ORDERED: ePHEDrine sulfate 50 MG/ML AMP IV PRN (17:04)
[2019-05-17] MEDS ORDERED: ATROPINE SULFATE 0.1 MG/ML 10ML SYR IV PRN (17:04)
[2019-05-17] MEDS ORDERED: ONDANSETRON INJ 2 MG/ML 2 ML VIAL IV PRN ×2 (17:04→17:54)
[2019-05-17] MEDS ORDERED: HYDROmorphone INJ 1 MG/ML SYRINGE IV PRN (17:04)
[2019-05-17] MEDS ORDERED: fentaNYL citrate 100 MCG/2 ML VIAL IV PRN (17:04)
--- NOTE | 2019-05-17 17:14 | Anesthesiology Progress Note ---
Date of Service May 17, 2019 Anesthesia Post Procedure Vital Signs Vital Signs: Temp Pulse Pulse Resp BP BP Pulse Ox 05/17/19 16:56 68 16 98 05/17/19 16:54 68 23 109/65 97 05/17/19 16:51 71 24 96 05/17/19 16:49 86 21 103/63 95 05/17/19 16:46 69 20 95 05/17/19 16:44 37.0 C 68 69 20 110/65 110/65 95 05/17/19 14:36 36.8 C 98 H 23 161/95 H 97 05/17/19 14:31 98 H 23 97 05/17/19 14:30 100 H 23 161/95 H 97 05/17/19 14:20 101 H 102 H 18 150/99 H 96 05/17/19 14:19 104 H 19 150/99 H 97 05/17/19 14:15 102 H 15 96 05/17/19 14:00 103 H 97 H 25 H 168/99 H 97 05/17/19 13:45 100 H 18 96 05/17/19 13:30 97 H 97 H 16 168/99 H 168/99 H 96 05/17/19 13:16 98 H 12 95 05/17/19 13:15 95 H 96 H 19 179/106 H 176/109 H 96 05/17/19 13:14 95 05/17/19 13:00 92 H 18 144/91 H 96 05/17/19 12:31 100 H 17 96 05/17/19 12:30 97 H 97 H 20 148/94 H 148/94 H 96 05/17/19 12:15 90 16 95 05/17/19 12:01 102 H 20 95 05/17/19 12:00 92 H 92 H 18 144/91 H 144/91 H 93 05/17/19 11:45 89 18 94 05/17/19 11:37 92 H 13 94 05/17/19 11:30 93 H 93 H 18 148/89 H 148/89 H 94 05/17/19 11:24 86 86 18 149/90 H 95 05/17/19 10:34 36.7 C 109 H 18 165/97 H 98 Pain Intensity Right Flank: Pain Intensity: 3 Abdomen: Pain Intensity: 0 Transfer of Care Handoff Completed per policy Notes Mental Status: alert / awake / arousable and participated in evaluation Patient Amnestic to Procedure: Yes Nausea / Vomiting: adequately controlled Pain: adequately controlled Airway Patency, RR, SpO2: stable & adequate BP & HR: stable & adequate Hydration State: stable & adequate Anesthetic Complications: no major complications apparent and Pt Satisfied with anesthetic care
[2019-05-17] MEDS ORDERED: OXYCODONE/ACETAMINOPHEN 5mg/325mg TAB PO PRN (17:54)
[2019-05-17] MEDS ORDERED: MoRPHine SULFATE 10 MG/ML CARP/VIAL IV PRN (17:54)
[2019-05-17] MEDS ORDERED: clonazePAM 0.5 MG TAB PO PRN (17:54)
[2019-05-17] MEDS ORDERED: MoRPHine SULFATE 4 MG/ML 1 ML CARP\\VIAL IV PRN (17:54)
[2019-05-17] MEDS: LACTATED RINGER'S 1,000 ML IV SCH (18:38)
[2019-05-17] MEDS: OXYCODONE/ACETAMINOPHEN 5mg/325mg TAB PO PRN (21:49)
[2019-05-18] MEDS: LACTATED RINGER'S 1,000 ML IV SCH (07:14)
--- NOTE | 2019-05-18 08:48 | Anesthesiology Progress Note ---
Date of Service May 18, 2019 Anesthesia Post Procedure Vital Signs Vital Signs: Temp Pulse Pulse Pulse Pulse Resp BP 05/18/19 07:20 36.5 C 76 16 05/18/19 03:57 36.6 C 83 18 05/17/19 23:05 36.7 C 96 H 18 05/17/19 20:57 36.6 C 94 H 16 05/17/19 19:58 36.2 C L 88 17 05/17/19 19:04 36.4 C L 77 17 05/17/19 18:29 76 18 05/17/19 17:55 36.8 C 72 18 05/17/19 17:31 68 15 05/17/19 17:29 81 20 109/63 05/17/19 17:27 36.9 C 05/17/19 17:26 72 13 05/17/19 17:24 77 20 116/63 05/17/19 17:21 76 23 05/17/19 17:19 76 20 111/62 05/17/19 17:16 72 16 05/17/19 17:14 71 16 104/63 05/17/19 17:11 74 16 05/17/19 17:09 65 15 117/60 05/17/19 17:06 74 20 05/17/19 17:04 67 22 114/62 05/17/19 17:01 72 16 05/17/19 16:59 72 14 115/64 05/17/19 16:56 68 16 05/17/19 16:54 68 23 109/65 05/17/19 16:51 71 24 05/17/19 16:49 86 21 103/63 05/17/19 16:46 69 20 05/17/19 16:44 37.0 C 68 69 20 110/65 05/17/19 14:36 36.8 C 98 H 23 161/95 H 05/17/19 14:31 98 H 23 05/17/19 14:30 100 H 23 161/95 H 05/17/19 14:20 101 H 102 H 18 05/17/19 14:19 104 H 19 150/99 H 05/17/19 14:15 102 H 15 05/17/19 14:00 103 H 97 H 25 H 05/17/19 13:45 100 H 18 05/17/19 13:30 97 H 97 H 16 168/99 H 05/17/19 13:16 98 H 12 05/17/19 13:15 95 H 96 H 19 179/106 H 05/17/19 13:14 05/17/19 13:00 92 H 18 05/17/19 12:31 100 H 17 05/17/19 12:30 97 H 97 H 20 148/94 H 05/17/19 12:15 90 16 05/17/19 12:01 102 H 20 05/17/19 12:00 92 H 92 H 18 144/91 H 05/17/19 11:45 89 18 05/17/19 11:37 92 H 13 05/17/19 11:30 93 H 93 H 18 148/89 H 05/17/19 11:24 86 86 18 05/17/19 10:34 36.7 C 109 H 18 165/97 H BP BP Pulse Ox 05/18/19 07:20 107/66 93 05/18/19 03:57 95/60 L 94 05/17/19 23:05 95/59 L 92 05/17/19 20:57 110/69 94 05/17/19 19:58 126/77 94 05/17/19 19:04 114/73 93 05/17/19 18:29 125/78 94 05/17/19 17:55 111/68 92 05/17/19 17:31 91 05/17/19 17:29 91 05/17/19 17:27 92 05/17/19 17:26 91 05/17/19 17:24 92 05/17/19 17:21 90 05/17/19 17:19 91 05/17/19 17:16 93 05/17/19 17:14 92 05/17/19 17:11 99 05/17/19 17:09 98 05/17/19 17:06 98 05/17/19 17:04 98 05/17/19 17:01 97 05/17/19 16:59 97 05/17/19 16:56 98 05/17/19 16:54 97 05/17/19 16:51 96 05/17/19 16:49 95 05/17/19 16:46 95 05/17/19 16:44 110/65 95 05/17/19 14:36 97 05/17/19 14:31 97 05/17/19 14:30 97 05/17/19 14:20 150/99 H 96 05/17/19 14:19 97 05/17/19 14:15 96 05/17/19 14:00 168/99 H 97 05/17/19 13:45 96 05/17/19 13:30 168/99 H 96 05/17/19 13:16 95 05/17/19 13:15 176/109 H 96 05/17/19 13:14 95 05/17/19 13:00 144/91 H 96 05/17/19 12:31 96 05/17/19 12:30 148/94 H 96 05/17/19 12:15 95 05/17/19 12:01 95 05/17/19 12:00 144/91 H 93 05/17/19 11:45 94 05/17/19 11:37 94 05/17/19 11:30 148/89 H 94 05/17/19 11:24 149/90 H 95 05/17/19 10:34 98 Pain Intensity Right Flank: Pain Intensity: 3 Abdomen: Pain Intensity: 3 Notes Mental Status: alert / awake / arousable and participated in evaluation Patient Amnestic to Procedure: Yes Nausea / Vomiting: adequately controlled Pain: adequately controlled Airway Patency, RR, SpO2: stable & adequate BP & HR: stable & adequate Hydration State: stable & adequate Anesthetic Complications: no major complications apparent and Pt Satisfied with anesthetic care
[2019-05-18] MEDS ORDERED: ASPIRIN 81 MG ECTAB PO SCH (09:00)
[2019-05-18] MEDS ORDERED: lisinopriL 10 MG TAB PO SCH (09:00)
[2019-05-18] MEDS ORDERED: MAGNESIUM OXIDE 400 MG TAB PO SCH (09:00)
--- NOTE | 2019-05-18 10:11 | Surgery Progress Note ---
Date of Service May 18, 2019 Assessment & Plan (1) S/P appendectomy: POD#1 Laparoscopic appendectomy Overall doing well Tolerating diet Pain managed Will plan for discharge to home today Will leave a script for BP medication and pain meds Have patient follow up in clinic within 1 week Patient seen and examined with Dr. Redding Subjective Patient feels well today. Offers no complaints Physical Exam Physical Exam: awake/alert Constitutional: well developed and well nourished; no acute distress Gastrointestinal (Abdomen): Inspection/Auscultation: + abdominal surgical incision (c/d/i with steri-strips in place) Results & Data Vital Signs (Past 12 Hours) Vital Signs Temp Pulse Resp BP Pulse Ox 05/18/19 07:20 36.5 C 76 16 107/66 93 05/18/19 03:57 36.6 C 83 18 95/60 L 94 05/17/19 23:05 36.7 C 96 H 18 95/59 L 92 PG Care Time/CCT Total # of Minutes Spent Total Time Spent with Patient: Total time spent is greater than 50% in coordination of care (as documented) at patient's floor/unit and/or counseling patient:
[2019-05-18] MEDS: OXYCODONE/ACETAMINOPHEN 5mg/325mg TAB PO PRN (10:43)
--- NOTE | 2019-05-20 12:59 | Discharge Summary ---
Date of Service May 20, 2019 Admission HPI Per Admitting Provider 53 y/o male with abdominal pain, N/V that began yesterday. Pain has continued, has not had anything like this before. Recently ran out of medicine for BP, needs to see PCP to have refill. Principal Diagnosis Acute appendicitis Discharge Exam Gastrointestinal (Abdomen) Inspection/Auscultation: + abdominal surgical incision (clean, dry); abdomen not distended Percussion/Palpation: abdomen soft Discharge Data Allergies Allergy/AdvReac Type Severity Reaction Status Date / Time No Known Allergies Allergy Unverified 05/17/19 11:14 Consultations 05/17/19 13:25 ED Decision to Admit Stat Procedures Performed Operation Date: 05/17/19 15:00 Actual Procedures p Laparoscopic Appendectomy(Not Applicable) - Jj Redding MD Ordered Studies 05/17/19 10:45 CT abd pelvis IV con only Stat Hospital Course (1) S/P appendectomy: 53 y/o male with 2 days of abdominal pain with leukocytosis and appendicitis on CT was taken to the operating room for appendectomy. He was observed on the surgical floor overnight. He was tolerating diet and oral analgesics. His BP was elevated in the ED, he recently ran out of his lisinopril. His blood pressure was improved and he received lisinopril in the morning. He was stable for discharge and was given limited prescription for lisinopril until he can f/u with PCP. Total Time Total Time Spent Total Time Spent (In Minutes): 10 Discharge Plan Discharge Items Patient Disposition: Home - Self-Care Reason For Visit: APPENDICITIS Discharge Diagnosis: laparoscopic appendectomy Activity: As commented below Lifting: No more than 10 pounds Bathing: No limitations Exercise/Sports: Wait until after follow-up appointment Driving/Machine Use: do not resume driving while taking narcotics for pain Non-emergency contact: Surgeon Call non-emergency contact if: you have any medication questions, your pain is not controlled, you have a fever, your temperature is above 101.5 and your wound has increased redness Follow-up/Referrals: Jj Redding MD [Surgeon] - (In 1 week, call to schedule) Sheng Espino MD [Primary Care Provider] - Diet: Regular Addtl Attending Provider Instructions: Pending Studies at Discharge: No Stand-Alone Forms: Work/School Release (ED), My [facility], Opioid Pain Management, Smoking Cessation Medications and DC Order Prescriptions: New oxycodone-acetaminophen [Percocet] 5-325 mg tablet 1 - 2 tab PO Q4H PRN (Reason: pain, initial therapy, max 8 daily) Qty: 15 RF: 0 lisinopril 10 mg tablet 10 mg PO DAILY Qty: 14 RF: 0 Continued multivitamin Tablet 1 tab PO DAILY Qty: 0 RF: 0 clonazepam [Klonopin] 0.5 mg Tablet 0.5 mg PO HS PRN (Reason: Insomnia) Qty: 0 RF: 0 [id number] C-Mn Capsule 2 cap PO DAILY Qty: 0 RF: 0 aspirin [Aspirin Low Dose] 81 mg Tablet,Delayed Release (Dr/Ec) 81 mg PO DAILY Qty: 0 RF: 0 ibuprofen [Advil] 200 mg Tablet 200 - 600 mg PO Q4H PRN (Reason: Pain) Qty: 0 RF: 0 Smoot-3 350 mg-235 mg- 90 mg-597 mg Capsule,Delayed Release(Dr/Ec) 2 cap PO DAILY Qty: 0 RF: 0 magnesium oxide 400 mg magnesium Tablet 400 mg PO DAILY Qty: 0 RF: 0 Discharge Orders: Discharge Order (Routine); Ordered 05/18/19 Ordered By: Yeni Vines Admission Data Admit Date/Time: 05/17/19 16:31 Attending Provider: Jj Redding Admit Provider: Jj Redding Primary Care Provider: Sheng Espino Other Providers: Jj Redding Other Interventions: Discharge Summary Assessment (RN) Last Done: 05/18/19 10:59 DC Date/Time DO NOT enter until pt leaves facility: 05/18/19 11:29
== END 2019-05-18 11:29 | disposition home or self-care (01) ==
LOC: ED 10:25 → 3W 14:36 → OR 14:36